=== PATIENT | female | born 1995 | race Caucasian/White ===

== ENCOUNTER 2019-01-25 13:02 | Observation (INO) ==
[2019-01-25] MEDS ORDERED: 0.9 % Sodium Chloride 1,000 ML IVC ONE (13:30)
--- NOTE | 2019-01-25 13:30 | Anesthesia Evaluation PreOp ---
Date of Encounter: 01/25/19 Time of Encounter: 14:02 - Past History Planned Operation: Left ruptured ectopic Cardiac History: HTN Pulmonary History: Denies Any Significant HX RETAIL REPRESENTATIVE History: Other (hx microdiscectomy) Other Medical History: Bleeding (intra-abdominally), Diabetes Type II (oral medications only), GERD, Other (von Willebrands Ds type 1, Radha-Danlos ds, high intra-ocular pressure) Anesthesia History: Past Anesthesia (back surgery x 2), Problems (nausea) Alcohol Use: none Drug use: none Medications and Allergies Gabapentin [Neurontin] 300 mg PO TID 07/14/18 [History] Benzonatate [Tessalon] 200 mg PO TID PRN #30 capsule 09/12/18 [Rx] Glipizide ER 09/12/18 [History] Labetalol HCl 09/12/18 [History] Lisinopril 09/12/18 [History] Ortho Micronor 09/12/18 [History] Guaifenesin/Dm/Pseudoephedrine [Capmist Dm Tablet] 1 each PO Q4HR PRN #10 tablet 12/15/18 [Rx] Allergy/AdvReac Type Severity Reaction Status Date / Time shellfish derived Allergy Unknown Unknown Verified 12/15/18 08:37 Sulfa (Sulfonamide Allergy Hives Verified 12/15/18 08:37 Antibiotics) sulfamethoxazole Allergy Hives Verified 12/15/18 08:37 [From Bactrim] trimethoprim [From Bactrim] Allergy Hives Verified 12/15/18 08:37 hydrocodone AdvReac Unknown Itching Verified 12/15/18 08:37 - Meds/Allergy Pre-op Review Medications Reviewed: Yes Allergies Reviewed: Yes Beta Blockers on Current Med List: No Anesthesia Results - Labs 01/25/19 13:30 01/25/19 13:30 Laboratory Tests 01/18/19 17:36 WBC 8.5 Hgb 12.5 Hct 38.2 Plt Count 239 Anesthesia Exam Last Vital Signs Temp 98.5 F 01/25/19 13:10 Pulse 88 01/25/19 13:10 Resp 18 01/25/19 13:10 BP 157/111 01/25/19 13:10 Pulse Ox 100 01/25/19 13:10 Weight: 110 kg NPO (# of Hours): ate at 10 am, emergent surgery - HEENT Pupil (Motor): Pupils equal, EOMI Mallampati: II Teeth: Normal Oral Opening: Greater than 3 - RETAIL REPRESENTATIVE LOC: Oriented - Cardiac Rhythm: Regular Murmur: None - Pulmonary Breath Sounds: bilateral Clear Respiratory Effort: Symmetrical Anesthesia Assess/Plan ASA Score: 3, E Level of consciousness: Cooperative Anesthetic Plan: General, Precautions (RSI, DDAVP due to bleeding intra-ab dominally and hx type I vWD, Type and crossed red cells on hold, 2 PIV for fluid resuscitation) Monitoring Plan: Standard Monitors Recovery Plan: PACU
[2019-01-25] MEDS ORDERED: Bupivacaine/EPI 1:200k 0.25%PF 10 ML VIAL INFILT ONE (13:31)
[2019-01-25] MEDS ORDERED: *HR* Promethazine 25 MG/ML VIAL IVP ONE (13:35)
--- NOTE | 2019-01-25 13:35 | Emergency Department Note ---
Disposition Clinical Impression: Ectopic without intrauterine Qualifiers: Location of ectopic : unspecified location Qualified Code(s): O00.90 - Unspecified ectopic without intrauterine Disposition: Admitted As Inpatient Condition: Fair Instructions: Ectopic (ED) Referrals: Iftikhar Rabago DO [Resident] - Forms: ED Satisfaction Letter Time of Disposition: 14:06 HPI - General Chief complaint: ED Vaginal Bleeding Stated complaint: Ruptured Ectopic from Ric Time Seen by Provider: 01/25/19 13:04 Source: patient Mode of arrival: ambulatory Limitations: no limitations Nursing Notes Reviewed: Yes Vital Signs Reviewed: Yes - History of Present Illness HPI Narrative: Concern about status. 23-year-old female presents to the emergency department from her obstetri diogenes's office Dr. Larios for ruptured ectopic . Patient states approximately one week ago she started having some abdominal pain and bleeding she was seen here and diagnosed with a threatened miscarriage ultrasound was done that showed no intrauterine and mild free fluid in the abdomen but there was no signs of ectopic at that time. She did have a beta Quant of 1000. She was to follow-up with [employer] to have a repeat. This was done and it was down to 500. Today she started having worsening abdominal pain so she called Dr. Larios's office and had an appointment. There they did an ultrasound with the free fluid they also noticed a ruptured fallopian tube and says she needed to come the emergency department for emergent surgery. Patient does have history of Radha-Danlos as well as von Willebrand. She did receive her RhoGAM at her previous visit. Patient otherwise is stable at this time only complaining of left-sided lower abdominal pain. Says it is 6 out of 10 normally and goes up to an 8 out of 9 whenever you palpate it. Says is sharp and stabbing in nature. Movement seems to make it worse. Patient has had no other vaginal discharge she has had mild bleeding but has since slowed down. Otherwise patient has no other complaints at this time. - Related Data Home Medications Medication Instructions Recorded Confirmed Gabapentin [Neurontin] 300 mg PO TID 07/14/18 07/14/18 Glipizide ER 09/12/18 Labetalol HCl 09/12/18 Lisinopril 09/12/18 Ortho Micronor 09/12/18 Previous Rx's Medication Instructions Recorded Benzonatate [Tessalon] 200 mg PO TID PRN #30 capsule 09/12/18 Guaifenesin/Dm/Pseudoephedrine 1 each PO Q4HR PRN #10 tablet 12/15/18 [Capmist Dm Tablet] Allergies Allergy/AdvReac Type Severity Reaction Status Date / Time shellfish derived Allergy Unknown Unknown Verified 12/15/18 08:37 Sulfa (Sulfonamide Allergy Hives Verified 12/15/18 08:37 Antibiotics) sulfamethoxazole Allergy Hives Verified 12/15/18 08:37 [From Bactrim] trimethoprim [From Bactrim] Allergy Hives Verified 12/15/18 08:37 hydrocodone AdvReac Unknown Itching Verified 12/15/18 08:37 All systems ED: reviewed and negative except as stated. Review of Systems: As Per HPI PMH - Social History Smoking Status: Never smoker Alcohol use: Reports: none Drug use: Reports: none Physical Exam - General Limitations: no limitations General appearance: alert, in no apparent distress - Head Head exam: atraumatic, normocephalic, normal inspection - Eye Eye exam: Present: normal appearance, PERRL, EOMI - ENT ENT exam: normal exam, normal oropharynx, mucous membranes moist - Neck Neck exam: Present: normal inspection, full ROM, trachea midline - Chest Chest inspection: Present: normal inspection, symmetric chest wall rise - Respiratory Respiratory exam: Present: normal lung sounds bilaterally - Cardiovascular Cardiovascular exam: Present: regular rate, normal rhythm, normal heart sounds - Abdominal Exam Abdominal exam: Present: soft, tenderness, normal bowel sounds. Absent: distention, guarding, rebound, rigidity, heel tap sign Abdominal tenderness: Present: LLQ, mild - Extremities Exam Extremities exam: Present: normal inspection, full ROM. Absent: tenderness, pedal edema - Back Exam Back exam: Present: normal inspection, full ROM. Absent: tenderness - Neurological Exam Neurological exam: Present: alert, oriented X3 - Skin Skin exam: Present: warm, dry, intact, normal color Course Course Narrative: Patient presents here with confirmed ectopic that is ruptured based on obstetricians ultrasound read today at their office. Patient is stable when she came here. We will get basic labs including CBC, BMP, urinalysis as well as a type and screen and von Willebrand factor panel. Patient will receive 2 large- bore IVs and received fluid and Phenergan for nausea control. We will consult with obstetrics for further evaluation and possible admission and possible surgery. Patient is declining pain medications at this time. Vital Signs Temperature 98.5 F 01/25/19 13:10 Pulse Rate 88 01/25/19 13:10 Respiratory Rate 18 01/25/19 13:10 Blood Pressure 157/111 01/25/19 13:10 O2 Sat by Pulse Oximetry 100 01/25/19 13:10 Temperature 98.5 F 01/25/19 13:10 Pulse Rate 88 01/25/19 13:10 Respiratory Rate 18 01/25/19 13:10 Blood Pressure 157/111 01/25/19 13:10 O2 Sat by Pulse Oximetry 100 01/25/19 13:10 Oxygen Delivery Oxygen Delivery Room Air OB/Uterine Contractions - MDM Narrative Medical decision making narrative: Dr. Larios came to the patient's bedside and have patient sign a waiver and consent to be taken to the OR for emergent surgery. Patient is stable at this time. Was never hypotensive all labs were ordered and patient was taken to the OR. Patient is admitted to the [facility] service. Patient stable at this time. - Medical Records Medical records reviewed: Yes I reviewed the patient's medical records. - Lab Data Lab results reviewed: Yes I reviewed the patient's lab results. Result diagrams: 01/25/19 13:30 01/25/19 13:30 Lab Results 01/25/19 01/25/19 01/25/19 Range/Units 13:30 13:30 13:30 WBC 7.8 (4.3-11.1) K/mcL RBC 4.80 (3.82-4.97) M/mcL Hgb 12.2 (11.5-15.4) g/dL Hct 37.6 (35.3-44.9) % MCV 78.3 L (83.0-100.0) fL MCH 25.4 L (28.0-33.3) pg MCHC 32.4 (31.6-35.5) g/dL RDW 13.1 (11.5-14.5) % Plt Count 225 (140-400) K/mcL MPV 10.5 (9.4-12.4) fL Immature Gran % 0.3 (0-4) % Seg Neutrophils % 55.0 % Lymphocytes % 38.0 % Monocytes % 5.4 % Eosinophils % 0.8 % Basophils % 0.5 % Neutrophils # 4.3 (1.6-8.9) K/mcL Lymphocytes # 3.0 (0.6-4.6) K/mcL Monocytes # 0.4 (0.0-1.3) K/mcL Eosinophils # 0.1 (0.0-0.6) K/mcL Basophils # 0.0 (0.0-0.2) K/mcL Sodium 137 (136-145) mEq/L Potassium 3.7 (3.5-5.1) mEq/L Chloride 102 (98-107) mEq/L Carbon Dioxide 27 (23-29) mEq/L BUN 9 (6-20) mg/dL Creatinine 0.55 L (0.60-1.20) mg/dL Est GFR ( Amer) > 60 (> 60) Est GFR (Non-Af Amer) > 60 (> 60) BUN/Creatinine Ratio 16 (6-26) Glucose 115 H (70-105) mg/dL Calculated Osmolality 284 (280-300) Calcium 9.6 (8.6-10.3) mg/dL Blood Type O NEGATIVE - Radiology Data Radiology results reviewed: Yes I reviewed the patient's radiology results. Attestation Statement - Attestation Attestation: I, Rui Blair DO, examined this patient [id number] and my medical decision-making was reviewed with Dr. Shabbir Tucker, Resident Physician. I agree with the documented findings, disposition and treatment plan as described except to the extent set forth below. I personally supervised and was present for the avendano/critical portions of the procedures completed by the resident documented below. Please see my progress notes for details.
[2019-01-25] MEDS ORDERED: Lidocaine -MPF 2% 2 ML VIAL ONE (13:36)
[2019-01-25] MEDS ORDERED: Ondansetron 4 MG/2 ML VIAL ONE (13:36)
[2019-01-25] MEDS ORDERED: *HR* Propofol 200 MG/20 ML VIAL IVP ONE (13:36)
[2019-01-25] MEDS ORDERED: *HR* Midazolam HCl 2 MG/2 ML VIAL ONE (13:36)
[2019-01-25] MEDS ORDERED: *HR* FentaNYL (PF) 100 MCG/2 ML VIAL ONE ×3 (13:36→14:27)
[2019-01-25] MEDS ORDERED: Dexamethasone 4 MG/ML VIAL ONE (13:36)
[2019-01-25] MEDS ORDERED: *HR* Succinylcholine 200 MG/10 ML VIAL IVP ONE (13:36)
[2019-01-25 13:39] LABS: Basophils % 0.5 %; Eosinophils # 0.1 K/mcL (0.0-0.6); Eosinophils % 0.8 %; Hematocrit 37.6 % (35.3-44.9); Hemoglobin 12.2 g/dL (11.5-15.4); Immature Granulocytes % 0.3 % (0-4); Mean Corpuscular HGB Conc 32.4 g/dL (31.6-35.5); Mean Corpuscular Hemoglobin 25.4 pg (28.0-33.3); Mean Corpuscular Volume 78.3 fL (83.0-100.0); Mean Platelet Volume 10.5 fL (9.4-12.4); Monocytes # 0.4 K/mcL (0.0-1.3); Monocytes % 5.4 %; Neutrophils # 4.3 K/mcL (1.6-8.9); Platelet Count 225 K/mcL (140-400); Red Cell Distribution Width 13.1 % (11.5-14.5)
[2019-01-25] MEDS ORDERED: SODIUM CHLORIDE 0.9% IVPB SCH (13:45)
[2019-01-25] MEDS ORDERED: DESMOPRESSIN IVPB SCH (13:45)
[2019-01-25 14:00] LABS: BUN/Creatinine Ratio 16 (6-26); Blood Urea Nitrogen 9 mg/dL (6-20); Calcium 9.6 mg/dL (8.6-10.3); Carbon Dioxide 27 mEq/L (23-29); Chloride 102 mEq/L (98-107); Glucose 115 mg/dL (70-105); Osmolality,Calculated 284 (280-300); Potassium 3.7 mEq/L (3.5-5.1); Sodium 137 mEq/L (136-145); eGFR For Non-African Americans > 60 (> 60)
[2019-01-25] MEDS ORDERED: *HR* Rocuronium Bromide 50 MG/5 ML VIAL ONE (14:14)
[2019-01-25] MEDS ORDERED: ceFAZolin 2,000 MG in Water for inj. (sterile) 20 ML IVP STA (14:17)
--- NOTE | 2019-01-25 14:22 | Emergency Department Note ---
Disposition Clinical Impression: Ectopic without intrauterine Qualifiers: Location of ectopic : unspecified location Qualified Code(s): O00.90 - Unspecified ectopic without intrauterine Disposition: Admitted As Inpatient Condition: Fair Instructions: Ectopic (ED) Referrals: Iftikhar Rabago DO [Resident] - Forms: ED Satisfaction Letter Time of Disposition: 14:23 General Adult HPI - General Chief complaint: ED Vaginal Bleeding Stated complaint: Ruptured Ectopic from Ric Time Seen by Provider: 01/25/19 13:04 Source: patient Mode of arrival: ambulatory Limitations: no limitations - History of Present Illness Pain Scale: 8 - Related Data Home Medications Medication Instructions Recorded Confirmed Gabapentin [Neurontin] 300 mg PO TID 07/14/18 07/14/18 Glipizide ER 09/12/18 Labetalol HCl 09/12/18 Lisinopril 09/12/18 Ortho Micronor 09/12/18 Previous Rx's Medication Instructions Recorded Benzonatate [Tessalon] 200 mg PO TID PRN #30 capsule 09/12/18 Guaifenesin/Dm/Pseudoephedrine 1 each PO Q4HR PRN #10 tablet 12/15/18 [Capmist Dm Tablet] Allergies Allergy/AdvReac Type Severity Reaction Status Date / Time shellfish derived Allergy Unknown Unknown Verified 12/15/18 08:37 Sulfa (Sulfonamide Allergy Hives Verified 12/15/18 08:37 Antibiotics) sulfamethoxazole Allergy Hives Verified 12/15/18 08:37 [From Bactrim] trimethoprim [From Bactrim] Allergy Hives Verified 12/15/18 08:37 hydrocodone AdvReac Unknown Itching Verified 12/15/18 08:37 Past Medical History - Past Medical History Medical history: Reports: asthma, diabetes, hypertension, other Surgical history: Reports: no surgical history Psychiatric history: Reports: no psych history [employer] history: Reports: non-contributory - Social History Smoking Status: Never smoker Smokeless Tobacco Status: No Alcohol use: Reports: none Drug use: Reports: none Physical Exam - General Limitations: no limitations General appearance: alert, in no apparent distress Course Vital Signs Temperature 98.5 F 01/25/19 13:10 Pulse Rate 88 01/25/19 13:10 Respiratory Rate 18 01/25/19 13:10 Blood Pressure 157/111 01/25/19 13:10 O2 Sat by Pulse Oximetry 100 01/25/19 13:10 Temperature 98.5 F 01/25/19 13:10 Pulse Rate 88 01/25/19 13:10 Respiratory Rate 18 01/25/19 13:10 Blood Pressure 157/111 01/25/19 13:10 O2 Sat by Pulse Oximetry 100 01/25/19 13:10 Oxygen Delivery Oxygen Delivery Room Air Medical Decision Making - Lab Data Result diagrams: 01/25/19 13:30 01/25/19 13:30 Lab Results 01/25/19 01/25/19 01/25/19 Range/Units 13:30 13:30 13:30 WBC 7.8 (4.3-11.1) K/mcL RBC 4.80 (3.82-4.97) M/mcL Hgb 12.2 (11.5-15.4) g/dL Hct 37.6 (35.3-44.9) % MCV 78.3 L (83.0-100.0) fL MCH 25.4 L (28.0-33.3) pg MCHC 32.4 (31.6-35.5) g/dL RDW 13.1 (11.5-14.5) % Plt Count 225 (140-400) K/mcL MPV 10.5 (9.4-12.4) fL Immature Gran % 0.3 (0-4) % Seg Neutrophils % 55.0 % Lymphocytes % 38.0 % Monocytes % 5.4 % Eosinophils % 0.8 % Basophils % 0.5 % Neutrophils # 4.3 (1.6-8.9) K/mcL Lymphocytes # 3.0 (0.6-4.6) K/mcL Monocytes # 0.4 (0.0-1.3) K/mcL Eosinophils # 0.1 (0.0-0.6) K/mcL Basophils # 0.0 (0.0-0.2) K/mcL Sodium 137 (136-145) mEq/L Potassium 3.7 (3.5-5.1) mEq/L Chloride 102 (98-107) mEq/L Carbon Dioxide 27 (23-29) mEq/L BUN 9 (6-20) mg/dL Creatinine 0.55 L (0.60-1.20) mg/dL Est GFR ( Amer) > 60 (> 60) Est GFR (Non-Af Amer) > 60 (> 60) BUN/Creatinine Ratio 16 (6-26) Glucose 115 H (70-105) mg/dL Calculated Osmolality 284 (280-300) Calcium 9.6 (8.6-10.3) mg/dL Beta HCG, Quant 140 H (Less than 5) mIU/mL Blood Type O NEGATIVE Antibody Screen POSITIVE Crossmatch See Detail Critical Care Time Critical Care Time: Yes Total Critical Care Time: 45 Attestation: Critical care performed: Time is exclusive of separately billable procedures. Time includes: direct patient care, patient reassessment, coordination of patient care, interpretation of data (laboratory data, radiology data, and respiratory data), review of patient's medical records, medical consultation and documentation of patient care. Procedures included in critical care time: Procedures excluded from critical care time: Attestation Statement - Attestation Attestation: I, Rui Blair DO, examined this patient [id number] and my medical decision-making was reviewed with Dr. Shabbir Tucker Resident Physician. I agree with the documented findings, disposition and treatment plan as described except to the extent set forth below. I personally supervised and was present for the avendano/critical portions of the procedures completed by the resident documented below. Please see my progress notes for details. 23-year-old female presents emergency room from an outside patient obstetrics provider's office. Dr. Larios of seeing the patient today after evaluation the emergency department on vaginal bleeding discharge and positive test. During the previous evaluation patient had a detailed laboratory workup completed as well as transvaginal ultrasound. There is free fluid noted in the abdomen with no visible signs of ectopic or intrauterine at that point. She was hemodynamically stable and then discharged home. During the follow-up evaluation repeat ultrasound was completed. The patient had not had any complaints outside of abdominal discomfort. Denied any significant change in the vaginal bleeding. In fact, she felt like he was getting foreign exchange trader. She is denying chest pain shortness of breath headache vision changes nausea vomiting or diarrhea. No fevers no chills. She has not fallen or injured herself. Patient is proud mother of 2 other children that she delivered without any complication. She does have von Willebrand's disease. She has never required aggressive blood products or management in the past. She is also O- and requires RhoGAM after each delivery. The patient was provided with program during her last evaluation. Patient screening completed here including laboratory workup and evaluation. She is hemodynamically stable. Lungs are clear heart is regular. Abdomen has some tenderness but there is no point tenderness guarding rigidity noted. Vaginal examination deferred at this time. The physician Dr. Larios is coming in to see the patient emergency department and has scheduled her for immediate emergent surgical intervention. 2 large-bore IVs were placed type and screen was ordered and patient will have fluids and nausea medication given. The von Willebrand's lab evaluation has been ordered and if DDAVP is required it will be provided to the patient. Patient is otherwise clinically stable at this time with potential for decompensation. Close management has been established. Patient will be going to the surgical suite immediately. See detailed documentation the physical exam, medical intervention, medical decision-making and disposition in the resident physician's note. No critical care applied the patient's treatment course at this time. 1400 Patient left our emergency room stable to the operative suite for definitive management. 45 minutes of critical care applied secondary to multidisciplinary intervention critical management
[2019-01-25] MEDS ORDERED: Neostigmine Methylsulfate 3 MG/3 ML SYRINGE ONE (14:43)
--- NOTE | 2019-01-25 15:03 | OB/GYN Procedure Note ---
Laparoscopy Procedure - Diagnosis Date of procedure: 01/25/19 Pre-op diagnosis: ectopic Post-op diagnosis: same - Procedure Laparoscopy procedure: operative laparoscopy, other (Left salpingectomy) Surgeon: Toño Key Was there an dental assistant medical assistant present: No Anesthesia provider: Yi Tirado Anesthesia Type: General Estimated blood loss (cc): 200 Complications: none Urine output (cc): 200 Specimens: left fallopian tube, tubal contents Findings: Left ruptured ectopic Disposition: PACU Narrative: Patient was seen in the office today with severe abdominal pain. Patient states the pain is progressing. An ultrasound was performed in the office today which showed fluid in the patient's cul-de-sac. Large amount of fluid around the left ovary. A large mass on the left side. Patient was sent to the emergency room ER was called and patient was scheduled immediately for surgery. Upon arrival patient was given an IV she was taken back to the operating room. She had 2 units of blood prepared just in case. After informed consent was obtained this patient was taken to the operating room. She was given general anesthesia prepped and draped in the usual sterile fashion. Patient's legs were placed up in yellowfin stirrups. Exam is performed. Uterus is mildly enlarged. The belly was full. Uterus is mobile. With this being done a weighted speculum was placed the posterior aspect of the vagina. A right angle speculum was placed in the anterior and LOOK at the cervix. The anterior lip of the cervix grasped using the tenaculum. A uterine manipulate the cortex in place. We then proceeded with abdominal portion procedure make a 5 mm subumbilical incision. Through this 5 mm trochars inserted under direct visualization. Trochars were placed laps was then reinserted through the port. The pelvic cavity was insufflated with approximately 3 L of CO2. Blood was immediately noted upon entering the abdominal cavity. I then proceeded by making a 12 mm incision suprapubically so that the Endobag and suction could be placed. With this being done the suction was placed in the pelvic cavity and the majority of the blood was sucked out at this point. I then made a 5 mm incision the left lower quadrant. A 5 mm trochars inserted under direct visualization. I then placed a blunt probe through this port. The bowel was backed away with a blunt probe and we were able to suck out the majority of the blood. The left ovary and tube were visualized. The tube had ruptured. There is a large amount of blood in this area as well as clots. They was removed so that visualization was made easier. The tube was mildly adherent to the bowel. We will remove this easily. At this point I was able to envision the entire fallopian tube. I felt that I could remove the tube with the LigaSure easily. The uterus itself was fine. Right ovary and tube also normal. With this being done the suction was removed from the suprapubic incision. The blunt probe was then removed also. The grasper was placed through the suprapubic incision and the LigaSure was then placed through the left lower quadrant portal. Using the LigaSure the entire fallopian tube was removed off the ovary. There was absolutely no bleeding noted throughout this case. The pelvic cavity was rinsed thoroughly with sterile water. C no bleeding the procedure was terminated. With the tube being completely removed it was placed in the anterior cul-de-sac. The rest of the pelvic cavity was visualized. No gross abnormalities seen. There was no bleeding from any site. With this being done the procedure was terminated. The Endobag was placed through the 12 mm portal. The tube was placed in the Endobag and the Endobag was removed with the fallopian tube in it. The instruments were then removed from the abdominal cavity. CO2 was removed. The 12 mm portal was then closed with 0 Vicryl suture in interrupted fashion. The 3 incisions were closed with 4 Vicryl sutures in particular fashion.
[2019-01-25] MEDS ORDERED: *HR* OxyCODONE Immed Rel 5 MG TABLET PO PRN ×2 (15:09→18:13)
[2019-01-25] MEDS ORDERED: *HR* Promethazine 25 MG/ML VIAL IVP PRN (15:09)
[2019-01-25 18:58] VITALS: BP 141/95
== END 2019-01-25 20:40 | disposition home or self-care (01) ==
LOC: 1NENUOBS 13:02 → EMEROOARM 13:02 → 1NENUOBS 13:50
PROVIDERS: ADMIT Obstetrics & Gynecology; ATTEND Obstetrics & Gynecology